=== PATIENT | male | born 1955 | race Two or more races ===

== ENCOUNTER 2023-12-08 16:35 | Inpatient (IN) | payer MEDICARE, OTHER ==
[~2023-12-08] VITALS: Ht 165.1 cm; Wt 81.6 kg
[~2023-12-08 16:35] MED LIST: TEMA7.5C12 PO
[2023-12-08 18:22] LABS: BASOPHILS % (AUTO) 0.9 % (0.0-2.0); EOSINOPHILS # (AUTO) 0.1 K/uL (0.0-0.7); EOSINOPHILS % (AUTO) 3.8 % (0.0-6.0); HEMATOCRIT 47 % (39-51); HEMOGLOBIN 15.8 g/dL (13.5-17.5); LYMPHOCYTES # (AUTO) 0.8 K/uL (0.8-4.8); LYMPHOCYTES % (AUTO) 20.3 % (20.0-44.0); MEAN CORPUSCULAR HEMOGLOBIN 31 PG (26.0-33.0); MEAN CORPUSCULAR HGB CONC 34 g/dl (31.0-36.0); MEAN CORPUSCULAR VOLUME 92 fL (80-96); MONOCYTES # (AUTO) 0.3 K/uL (0.1-1.30); MONOCYTES % (AUTO) 8.6 % (2.0-12.0); NEUTROPHILS # (AUTO) 2.6 K/uL (1.8-8.9); NEUTROPHILS % (AUTO) 66.4 % (43.0-81.0); RED BLOOD CELL COUNT(AUTO) 5.13 MIL/uL (4.5-6.0); RED CELL DISTRIBUTION WIDTH 14.6 % (11.5-15.0); WHITE BLOOD COUNT (AUTO) 3.9 K/uL (4.3-11.0)
[2023-12-08 18:32] LABS: CARBON DIOXIDE 22 mmol/L (21-32); CHLORIDE 108 mmol/L (98-107); CREATININE 0.7 mg/dL (0.6-1.3); GLUCOSE 123 mg/dL (74-106); POTASSIUM 3.7 mmol/L (3.5-5.1); SODIUM SERUM 139 mmol/L (136-145); UREA NITROGEN, BLOOD 3 mg/dL (7-18)
[2023-12-08 18:35] LABS: PLATELET COUNT (AUTO) 41 K/uL (150-450)
[2023-12-08 18:41] LABS: ALANINE AMINOTRANSFERASE 34 U/L (12-78); ALKALINE PHOSPHATASE 120 U/L (46-116); ASPARTATE AMINOTRANSFERASE 49 U/L (15-37); BILIRUBIN,DIRECT 0.6 mg/dL (0.0-0.2); CALCIUM, SERUM 8.2 mg/dL (8.5-10.1)
[2023-12-08 18:43] LABS: ACETAMINOPHEN 0 ug/ml (10-30); ALCOHOL, BLOOD < 3 mg/dL (0-10); SALICYLATE < 0.2 mg/dL (2.8-20.0)
[2023-12-08 18:49] LABS: APPEARANCE,URINE Clear (CLEAR); BILIRUBIN,URINE Negative (NEGATIVE); BLOOD, URINE Trace-intact Ery/uL (NEGATIVE); COLOR,URINE Other (YELLOW); KETONES,URINE Negative (NEGATIVE); LEUKOCYTE ESTERASE ,URINE Negative (NEGATIVE); NITRITE, URINE Negative (NEGATIVE); PROTEIN,URINE Negative (NEGATIVE); UGLUCOSE Negative (NEGATIVE); UROBILINOGEN,URINE 0.2 EU/dL (0.2)
[2023-12-08 19:09] LABS: AMPHETAMINE, URINE NEGATIVE (NEGATIVE); BARBITURATE, URINE NEGATIVE (NEGATIVE); BENZODIAZEPINE, URINE NEGATIVE (NEGATIVE); CANNABINOID, URINE NEGATIVE (NEGATIVE); COCCAINE, URINE NEGATIVE (NEGATIVE); OPIATE, URINE NEGATIVE (NEGATIVE); PHENCYCLIDINE SCREEN,URINE NEGATIVE (NEGATIVE)
[2023-12-08 19:27] LABS: ADD URINE CULTURE NO; BACTERIA,URINE Rare /HPF (None Seen); RBC,URINE 0-2 /HPF (0-2); SQUAMOUS EPITHELIAL CELL,UR Rare /HPF (None Seen); WBC,URINE 0-2 /HPF (0-3)
[2023-12-08] MEDS ORDERED: DOCU-141 PO (20:25)
[2023-12-08] MEDS ORDERED: LACT10SO3 PO (20:25)
[2023-12-08] MEDS ORDERED: GABA-532 PO (20:25)
[2023-12-08] MEDS ORDERED: CARV3.122 PO (20:25)
[2023-12-08] MEDS ORDERED: MAG355OR18 PO (20:26)
[2023-12-08] MEDS ORDERED: MELA3TAB41 PO (20:27)
[2023-12-08] MEDS ORDERED: RISP0.5T65 PO (20:29)
[2023-12-08] MEDS ORDERED: RIFA550T PO (20:29)
[2023-12-08] MEDS ORDERED: TEMA15CA PO (20:29)
[2023-12-08] MEDS ORDERED: MEMA10TA PO (20:29)
[2023-12-08 20:56] LABS: EOSINOPHILS % (MANUAL) 3 % (0-4); LYMPHOCYTES % (MANUAL) 20 % (16-48); MONOCYTES % (MANUAL) 7 % (0-11.0); NEUTROPHILS % (MANUAL) 70 (42-76); PLATELET ESTIMATE DECREASED
[2023-12-08] MEDS ORDERED: MAGNESIUM HYDROXIDE 30 ML UDC PO PRN (22:00)
[2023-12-08] MEDS ORDERED: LORAZEPAM 0.5 MG TABLET PO PRN (22:00)
[2023-12-08] MEDS ORDERED: TEMAZEPAM 7.5 MG CAPSULE PO PRN (22:00)
[2023-12-08] MEDS ORDERED: MAG HYDROX/AL HYDROX/SIMETH 30 ML UDC PO PRN (22:00)
[2023-12-08] MEDS ORDERED: ACETAMINOPHEN 325 MG TABLET PO PRN (22:00)
[2023-12-08] MEDS: BLOOD SUGAR DIAGNOSTIC 1 EACH STRIP IN ONE (22:32)
[2023-12-08 23:25] VITALS: BP 129/75; TEMP 98; O2SAT 98
[2023-12-09 08:00] VITALS: BP 189/120; TEMP 98.6; O2SAT 95
[2023-12-09] MEDS ORDERED: MAG30ORA PO (08:44)
[2023-12-09] MEDS ORDERED: MAGN400O6 PO (08:44)
[2023-12-09] MEDS ORDERED: ERGO500093 PO (08:44)
[2023-12-09] MEDS ORDERED: NA P133E RC (08:44)
[2023-12-09] MEDS ORDERED: CRAN425C6 PO (08:44)
[2023-12-09] MEDS ORDERED: POTA-88 PO (08:44)
[2023-12-09] MEDS ORDERED: MULT-213 PO (08:44)
[2023-12-09] MEDS ORDERED: ACET325T53 PO (08:44)
[2023-12-09] MEDS ORDERED: GABA300C PO (08:44)
[2023-12-09] MEDS ORDERED: MAGN400T26 PO (08:44)
[2023-12-09] MEDS ORDERED: ACETAMINOPHEN 325 MG TABLET PO PRN (12:30)
[2023-12-09] MEDS: CARVEDILOL 3.125 MG TABLET PO SCH (12:30)
[2023-12-09] MEDS ORDERED: NA PHOS,M-B/NA PHOS,DI-BA 1 EA ENEMA RC PRN (12:30)
[2023-12-09] MEDS ORDERED: LACTULOSE 10 G/15 ML UDC (PYXIS) PO PRN (12:30)
[2023-12-09 12:50] VITALS: BP 94/67
[2023-12-09] MEDS: GABAPENTIN 300 MG CAPSULE PO SCH (13:17)
[2023-12-09] MEDS: risperiDONE 1 MG TABLET PO SCH ×2 (15:09→21:38)
[2023-12-09 16:00] VITALS: BP 102/65; TEMP 97.7; O2SAT 96
[2023-12-09] MEDS: RIFAXIMIN 550 MG TABLET PO SCH (16:39)
[2023-12-09] MEDS: MEMANTINE HCL 5 MG TABLET PO SCH (16:39)
[2023-12-09 20:00] VITALS: BP 125/73; TEMP 98.4; O2SAT 96
[2023-12-10 07:34] LABS: BASOPHILS % (AUTO) 0.7 % (0.0-2.0); EOSINOPHILS # (AUTO) 0.2 K/uL (0.0-0.7); EOSINOPHILS % (AUTO) 4.5 % (0.0-6.0); HEMATOCRIT 47 % (39-51); HEMOGLOBIN 16.1 g/dL (13.5-17.5); LYMPHOCYTES # (AUTO) 0.9 K/uL (0.8-4.8); LYMPHOCYTES % (AUTO) 23.1 % (20.0-44.0); MEAN CORPUSCULAR HEMOGLOBIN 32 PG (26.0-33.0); MEAN CORPUSCULAR HGB CONC 34 g/dl (31.0-36.0); MEAN CORPUSCULAR VOLUME 94 fL (80-96); MONOCYTES # (AUTO) 0.3 K/uL (0.1-1.30); MONOCYTES % (AUTO) 8.7 % (2.0-12.0); NEUTROPHILS # (AUTO) 2.5 K/uL (1.8-8.9); RED BLOOD CELL COUNT(AUTO) 5.06 MIL/uL (4.5-6.0); RED CELL DISTRIBUTION WIDTH 14.3 % (11.5-15.0); WHITE BLOOD COUNT (AUTO) 3.9 K/uL (4.3-11.0)
[2023-12-10 07:47] LABS: PLATELET COUNT (AUTO) 43 K/uL (150-450)
[2023-12-10 08:00] VITALS: BP 116/72; TEMP 97.7; O2SAT 98
[2023-12-10 08:21] LABS: CALCIUM, SERUM 8.5 mg/dL (8.5-10.1); CREATININE 0.7 mg/dL (0.6-1.3); POTASSIUM 3.4 mmol/L (3.5-5.1)
[2023-12-10] MEDS: DOCUSATE SODIUM 100 MG CAPSULE PO SCH (08:31)
[2023-12-10] MEDS: MULTIVITAMINS,THERAGRAN 1 UDTAB TABLET PO SCH (08:34)
[2023-12-10] MEDS ORDERED: ERGOCALCIFEROL (VITAMIN D 2) 50,000 UNIT CAPSULE PO SCH (09:00)
[2023-12-10] MEDS: CHOLECALCIFEROL 1,000 UNIT TABLET (VIT D3) PO SCH (09:29)
[2023-12-10 11:29] LABS: ANISOCYTOSIS 1+; BASOPHILS % (MANUAL) 0 % (0.0-2.0); EOSINOPHILS % (MANUAL) 4 % (0-4); LYMPHOCYTES % (MANUAL) 19 % (16-48); MONOCYTES % (MANUAL) 5 % (0-11.0); NEUTROPHILS % (MANUAL) 72 (42-76); PLATELET ESTIMATE DECREASED
[2023-12-10] MEDS: POTASSIUM CHLORIDE 20 MEQ TAB.PRT.SR PO ONE (11:57)
[2023-12-10 16:00] VITALS: BP 128/86; TEMP 97.9; O2SAT 94
[2023-12-10 20:00] VITALS: BP 124/76; TEMP 98; O2SAT 98
[2023-12-11 08:00] VITALS: BP 124/82; TEMP 98.2; O2SAT 95
[2023-12-11 15:46] LABS: BASOPHILS % (AUTO) 0.9 % (0.0-2.0); EOSINOPHILS # (AUTO) 0.2 K/uL (0.0-0.7); EOSINOPHILS % (AUTO) 4.3 % (0.0-6.0); HEMATOCRIT 48 % (39-51); HEMOGLOBIN 16.3 g/dL (13.5-17.5); LYMPHOCYTES # (AUTO) 0.9 K/uL (0.8-4.8); MEAN CORPUSCULAR HEMOGLOBIN 32 PG (26.0-33.0); MEAN CORPUSCULAR HGB CONC 34 g/dl (31.0-36.0); MEAN CORPUSCULAR VOLUME 95 fL (80-96); MONOCYTES # (AUTO) 0.3 K/uL (0.1-1.30); MONOCYTES % (AUTO) 8.4 % (2.0-12.0); NEUTROPHILS # (AUTO) 2.6 K/uL (1.8-8.9); NEUTROPHILS % (AUTO) 64.4 % (43.0-81.0); RED BLOOD CELL COUNT(AUTO) 5.03 MIL/uL (4.5-6.0); RED CELL DISTRIBUTION WIDTH 15.1 % (11.5-15.0)
[2023-12-11 15:52] LABS: PLATELET COUNT (AUTO) 43 K/uL (150-450)
[2023-12-11 16:00] VITALS: BP 104/64; TEMP 98.1; O2SAT 95
[2023-12-11 16:18] LABS: C-REACTIVE PROTEIN < 0.20 mg/dL (0.0-0.30); FERRITIN 75 ng/mL (8-388); THYROID STIMULATING HORMONE 1.479 uIU/mL (0.358-3.74)
[2023-12-11 16:26] LABS: IRON, SERUM 69 ug/dl (50-175); TOTAL IRON BINDING CAPACITY 250 ug/dl (250-450)
[2023-12-11 16:38] LABS: ALANINE AMINOTRANSFERASE 23 U/L (12-78); ALBUMIN 2.5 g/dL (3.4-5.0); ALKALINE PHOSPHATASE 111 U/L (46-116); ASPARTATE AMINOTRANSFERASE 30 U/L (15-37); BILIRUBIN,DIRECT 0.7 mg/dL (0.0-0.2); BILIRUBIN,TOTAL 2.8 mg/dL (0.2-1.0); TOTAL PROTEIN, SERUM 6.5 g/dL (6.4-8.2)
[2023-12-11 18:02] LABS: RHEUMATOID FACTOR SCREEN NEGATIVE (NEGATIVE)
[2023-12-11 18:23] LABS: ANISOCYTOSIS 1+; EOSINOPHILS % (MANUAL) 5 % (0-4); LYMPHOCYTES % (MANUAL) 17 % (16-48); MONOCYTES % (MANUAL) 6 % (0-11.0); NEUTROPHILS % (MANUAL) 72 (42-76); PLATELET ESTIMATE DECREASED
[2023-12-11 18:24] LABS: ROULEAUX 1+
[2023-12-11 20:18] VITALS: BP 110/70; TEMP 98; O2SAT 95
[2023-12-12 07:17] LABS: BASOPHILS % (AUTO) 0.7 % (0.0-2.0); EOSINOPHILS # (AUTO) 0.2 K/uL (0.0-0.7); EOSINOPHILS % (AUTO) 4.7 % (0.0-6.0); HEMATOCRIT 47 % (39-51); HEMOGLOBIN 15.9 g/dL (13.5-17.5); LYMPHOCYTES # (AUTO) 1.1 K/uL (0.8-4.8); LYMPHOCYTES % (AUTO) 23.4 % (20.0-44.0); MEAN CORPUSCULAR HEMOGLOBIN 32 PG (26.0-33.0); MEAN CORPUSCULAR HGB CONC 34 g/dl (31.0-36.0); MEAN CORPUSCULAR VOLUME 94 fL (80-96); MONOCYTES # (AUTO) 0.4 K/uL (0.1-1.30); MONOCYTES % (AUTO) 9.4 % (2.0-12.0); NEUTROPHILS # (AUTO) 2.8 K/uL (1.8-8.9); NEUTROPHILS % (AUTO) 61.8 % (43.0-81.0); RED CELL DISTRIBUTION WIDTH 14.5 % (11.5-15.0); WHITE BLOOD COUNT (AUTO) 4.5 K/uL (4.3-11.0)
[2023-12-12 07:24] LABS: PLATELET COUNT (AUTO) 43 K/uL (150-450)
[2023-12-12 07:38] LABS: ALBUMIN 2.5 g/dL (3.4-5.0); BILIRUBIN,DIRECT 0.8 mg/dL (0.0-0.2); BILIRUBIN,TOTAL 2.8 mg/dL (0.2-1.0); CALCIUM, SERUM 8.6 mg/dL (8.5-10.1); CREATININE 0.8 mg/dL (0.6-1.3); POTASSIUM 3.7 mmol/L (3.5-5.1); TOTAL PROTEIN, SERUM 6.4 g/dL (6.4-8.2)
[2023-12-12 08:00] VITALS: BP 136/87; TEMP 98.6; O2SAT 97
[2023-12-12 10:09] LABS: *ANA ANTI-CENTROMERE B AB <0.2 AI (0.0-0.9); *ANA ANTI-DNA(DS) AB, QN <1 IU/mL (0-9); *ANA ANTI-JO-1 <0.2 AI (0.0-0.9); *ANA ANTICHROMATIN ANTIBODY <0.2 AI (0.0-0.9); *ANA RNP ANTIBODIES 0.2 AI (0.0-0.9); *ANA SJOGREN'S ANTI-SS-A <0.2 AI (0.0-0.9); *ANA SJOGREN'S ANTI-SS-B <0.2 AI (0.0-0.9); *ANAANTI-SCLERODERMA-70 AB <0.2 AI (0.0-0.9); *ANASMITH AB <0.2 AI (0.0-0.9)
[2023-12-12 10:55] LABS: BASOPHILS % (MANUAL) 0 % (0.0-2.0); EOSINOPHILS % (MANUAL) 3 % (0-4); LYMPHOCYTES % (MANUAL) 18 % (16-48); MONOCYTES % (MANUAL) 7 % (0-11.0); NEUTROPHILS % (MANUAL) 72 (42-76); PLATELET ESTIMATE DECREASED
[2023-12-12] MEDS: risperiDONE 0.25 MG TABLET PO SCH (13:43)
[2023-12-12 16:00] VITALS: BP 120/80; TEMP 97.9; O2SAT 97
[2023-12-12 20:50] VITALS: BP 102/58; TEMP 97.9; O2SAT 96
[2023-12-13 07:07] LABS: HEPATITIS B SURFACE AB Non Reactive (.); IMMUNOGLOBULIN A, SERUM 660 mg/dL (61-437); IMMUNOGLOBULIN G, SERUM 1333 mg/dL (603-1613); IMMUNOGLOBULIN M, SERUM 396 mg/dL (20-172)
[2023-12-13 08:00] VITALS: BP 132/90; TEMP 97.9; O2SAT 97
[2023-12-13 08:10] LABS: *SPE A/G RATIO 0.7 (0.7-1.7); *SPE ALBUMIN 2.6 g/dL (2.9-4.4); *SPE ALPHA-1-GLOBULIN 0.3 g/dL (0.0-0.4); *SPE ALPHA-2-GLOBULIN 0.6 g/dL (0.4-1.0); *SPE BETA GLOBULIN 1.1 g/dL (0.7-1.3); *SPE GLOBULIN, TOTAL 3.6 g/dL (2.2-3.9); *SPE M-SPIKE 0.6 g/dL (Not Observed); *SPE PROTEIN TOTAL 6.2 g/dL (6.0-8.5); *SPEGAMMA GLOBULIN 1.7 g/dL (0.4-1.8)
[2023-12-13 13:09] LABS: FREE KAPPA LT CHAINS SERUM 88.2 mg/L (3.3-19.4); FREE LAMBDA LT CHAIN SERUM 30.2 mg/L (5.7-26.3); KAPPA/LAMBDA RATIO SERUM 2.92 (0.26-1.65)
[2023-12-13 15:07] LABS: FOLIC ACID > 20.0 ng/mL (>3.0)
[2023-12-13 16:00] VITALS: BP 150/90; TEMP 98.7; O2SAT 99
[2023-12-13 20:44] VITALS: BP 120/68; TEMP 98.2; O2SAT 96
[2023-12-13] MEDS: risperiDONE 1 MG TABLET PO SCH (21:06)
[2023-12-14 07:41] LABS: BASOPHILS % (AUTO) 0.7 % (0.0-2.0); EOSINOPHILS # (AUTO) 0.2 K/uL (0.0-0.7); EOSINOPHILS % (AUTO) 4.3 % (0.0-6.0); HEMATOCRIT 46 % (39-51); LYMPHOCYTES % (AUTO) 23.2 % (20.0-44.0); MEAN CORPUSCULAR HEMOGLOBIN 32 PG (26.0-33.0); MEAN CORPUSCULAR HGB CONC 35 g/dl (31.0-36.0); MEAN CORPUSCULAR VOLUME 94 fL (80-96); MONOCYTES # (AUTO) 0.4 K/uL (0.1-1.30); MONOCYTES % (AUTO) 9.7 % (2.0-12.0); NEUTROPHILS # (AUTO) 2.7 K/uL (1.8-8.9); NEUTROPHILS % (AUTO) 62.1 % (43.0-81.0); RED BLOOD CELL COUNT(AUTO) 4.94 MIL/uL (4.5-6.0); RED CELL DISTRIBUTION WIDTH 14.4 % (11.5-15.0); WHITE BLOOD COUNT (AUTO) 4.3 K/uL (4.3-11.0)
[2023-12-14 07:59] LABS: ALBUMIN 2.6 g/dL (3.4-5.0); BILIRUBIN,DIRECT 0.8 mg/dL (0.0-0.2); BILIRUBIN,TOTAL 2.7 mg/dL (0.2-1.0); TOTAL PROTEIN, SERUM 6.5 g/dL (6.4-8.2)
[2023-12-14 08:00] VITALS: BP 143/82; TEMP 97.9; O2SAT 97
[2023-12-14 08:29] LABS: PLATELET COUNT (AUTO) 40 K/uL (150-450)
[2023-12-14 08:36] LABS: INR 1.41 (0.91-1.10); PARTIAL THROMBOPLASTIN TIME 29.9 SEC (24.3-34.3); PROTHROMBIN TIME 14.6 SECS (9.2-11.1)
[2023-12-14 09:50] LABS: BASOPHILS % (MANUAL) 0 % (0.0-2.0); EOSINOPHILS % (MANUAL) 3 % (0-4); LYMPHOCYTES % (MANUAL) 21 % (16-48); MONOCYTES % (MANUAL) 6 % (0-11.0); NEUTROPHILS % (MANUAL) 70 (42-76); PLATELET ESTIMATE DECREASED
[2023-12-14] MEDS ORDERED: LIDOCAINE 1% INJ 50 ML MDV IJ ONE (15:30)
[2023-12-14 16:00] VITALS: BP 126/65; TEMP 98.7; O2SAT 97
[2023-12-14] MEDS: risperiDONE 1 MG TABLET PO SCH (17:02)
[2023-12-14 20:17] VITALS: BP 119/74; TEMP 98.1; O2SAT 97
[2023-12-15 07:41] LABS: BASOPHILS % (AUTO) 0.7 % (0.0-2.0); EOSINOPHILS # (AUTO) 0.1 K/uL (0.0-0.7); EOSINOPHILS % (AUTO) 4.2 % (0.0-6.0); HEMATOCRIT 47 % (39-51); HEMOGLOBIN 16.1 g/dL (13.5-17.5); LYMPHOCYTES # (AUTO) 0.8 K/uL (0.8-4.8); MEAN CORPUSCULAR HEMOGLOBIN 32 PG (26.0-33.0); MEAN CORPUSCULAR HGB CONC 34 g/dl (31.0-36.0); MEAN CORPUSCULAR VOLUME 94 fL (80-96); MONOCYTES # (AUTO) 0.3 K/uL (0.1-1.30); MONOCYTES % (AUTO) 8.4 % (2.0-12.0); NEUTROPHILS # (AUTO) 2.3 K/uL (1.8-8.9); NEUTROPHILS % (AUTO) 64.7 % (43.0-81.0); RED BLOOD CELL COUNT(AUTO) 5.02 MIL/uL (4.5-6.0); RED CELL DISTRIBUTION WIDTH 14.5 % (11.5-15.0); WHITE BLOOD COUNT (AUTO) 3.5 K/uL (4.3-11.0)
[2023-12-15 08:00] VITALS: BP 120/68; TEMP 98; O2SAT 100
[2023-12-15 08:05] LABS: PLATELET COUNT (AUTO) 40 K/uL (150-450)
[2023-12-15 08:31] LABS: INR 1.41 (0.91-1.10); PARTIAL THROMBOPLASTIN TIME 30.2 SEC (24.3-34.3); PROTHROMBIN TIME 14.6 SECS (9.2-11.1)
[2023-12-15 10:57] LABS: BASOPHILS % (MANUAL) 0 % (0.0-2.0); EOSINOPHILS % (MANUAL) 5 % (0-4); LYMPHOCYTES % (MANUAL) 18 % (16-48); MONOCYTES % (MANUAL) 9 % (0-11.0); NEUTROPHILS % (MANUAL) 68 (42-76); PLATELET ESTIMATE DECREASED
[2023-12-15] MEDS: PHYTONADIONE INJ 10 MG/1 ML AMPUL SQ ONE (12:51)
[2023-12-15] MEDS ORDERED: LORAZEPAM 0.5 MG TABLET PO PRN (15:30)
[2023-12-15] MEDS ORDERED: MORPHINE SULFATE INJ 2 MG/ML DISP.SYRIN IM PRN (15:30)
[2023-12-15 15:47] VITALS: BP 124/67; TEMP 97.4; O2SAT 97
[2023-12-15] MEDS ORDERED: RISP1TAB7 PO (18:53)
[2023-12-15] MEDS ORDERED: MORP2VIA IM (18:53)
[2023-12-15] MEDS ORDERED: LORA-258 PO (18:53)
[2023-12-15] MEDS ORDERED: LORA-259 PO (18:53)
[2023-12-15] MEDS ORDERED: MULT-24 PO (18:53)
[2023-12-15] MEDS ORDERED: CHOL100043 PO (18:53)
== END 2023-12-15 16:05 | DRG 885 ==
LOC: ER 16:35 → GPS 20:01
PROVIDERS: ADMIT Nurse Practitioner Psychiatric/Mental Health; ATTEND Nurse Practitioner Acute Care
DX: F29 Unspecified psychosis not due to a substance or known physiological condition (principal); G93.41 Metabolic encephalopathy; D61.818 Other pancytopenia; E44.0 Moderate protein-calorie malnutrition; F03.90 Unspecified dementia, unspecified severity, without behavioral disturbance, psychotic disturbance, mood disturbance, and anxiety; I10 Essential (primary) hypertension; F10.21 Alcohol dependence, in remission; K21.9 Gastro-esophageal reflux disease without esophagitis; F25.9 Schizoaffective disorder, unspecified; E88.09 Other disorders of plasma-protein metabolism, not elsewhere classified; K70.30 Alcoholic cirrhosis of liver without ascites; D72.819 Decreased white blood cell count, unspecified; D69.59 Other secondary thrombocytopenia; E80.6 Other disorders of bilirubin metabolism; Z20.822 Contact with and (suspected) exposure to COVID-19; R16.1 Splenomegaly, not elsewhere classified; Z73.6 Limitation of activities due to disability; E87.6 Hypokalemia; K80.20 Calculus of gallbladder without cholecystitis without obstruction; Z87.891 Personal history of nicotine dependence; Z68.30 Body mass index [BMI] 30.0-30.9, adult; E66.9 Obesity, unspecified
CPT/HCPCS: 36415; 71045-TC; 74181-TC; 76700-TC; 80048-TC; 80061-TC; 80076-TC; 81001; 82140-TC; 82247-TC; 82248-TC; 82607-TC; 82728-TC; 82784; 83540-TC; 84155; 84165; 84443-TC; 85025-TC; 85610-TC; 85730-TC; 86140-TC; 86225; 86235; 86334; 86431-TC; 86706; 86803; 87081-TC; 87340; 97112-TC; 97116-TC; 97530-TC; G0480; J3430; J3490

== ENCOUNTER 2023-12-15 16:04 | Inpatient (IN) | payer MEDICARE, OTHER ==
[~2023-12-15] VITALS: Ht 167.6 cm; Wt 91.6 kg
[~2023-12-15 16:04] MED LIST changes: +ACET325T53 PO; +CARV3.122 PO; +CRAN425C6 PO; +DOCU-141 PO; +ERGO500093 PO; +GABA300C PO; +LACT10SO3 PO; +MAG30ORA PO; +MAGN400O6 PO; +MAGN400T26 PO; +MELA3TAB41 PO; +MEMA10TA PO; +MULT-213 PO; +NA P133E RC; +POTA-88 PO; +RIFA550T PO; +RISP0.5T65 PO
[2023-12-15 17:00] VITALS: BP 147/82; TEMP 98.8; O2SAT 97
[2023-12-15] MEDS ORDERED: ACETAMINOPHEN 325 MG TABLET PO PRN (17:00)
[2023-12-15] MEDS ORDERED: Z GUARD REMEDY 4 OZ OINT TP PRN (17:00)
[2023-12-15] MEDS ORDERED: MAGNESIUM HYDROXIDE 30 ML UDC PO PRN (17:00)
[2023-12-15] MEDS ORDERED: ONDANSETRON HCL/PF 4 MG/2 ML VIAL IVP PRN (17:00)
[2023-12-15] MEDS ORDERED: CHOL100043 PO (18:53)
[2023-12-15] MEDS ORDERED: MULT-24 PO (18:53)
[2023-12-15] MEDS ORDERED: RISP1TAB7 PO (18:53)
[2023-12-15] MEDS ORDERED: MORP2VIA IM (18:53)
[2023-12-15] MEDS ORDERED: LORA-258 PO (18:53)
[2023-12-15] MEDS ORDERED: LORA-259 PO (18:53)
[2023-12-15 20:00] VITALS: BP_SYST 164; BP_SYST 176; BP_DIAS 80; BP_DIAS 86; TEMP 97.7; O2SAT 97
[2023-12-15 23:08] VITALS: BP 157/93; TEMP 97.5
[2023-12-15 23:25] VITALS: BP 180/83; TEMP 97.4
[2023-12-16] VITALS (8 sets, daily range): BP systolic 128–153; BP diastolic 69–94; TEMP 97.6–98.8; O2SAT 90–98
[2023-12-16] MEDS: LORAZEPAM INJ 2 MG/ML VIAL IV PRN (03:53)
[2023-12-16 06:56] LABS: BASOPHILS % (AUTO) 0.4 % (0.0-2.0); EOSINOPHILS # (AUTO) 0.1 K/uL (0.0-0.7); EOSINOPHILS % (AUTO) 3.5 % (0.0-6.0); HEMATOCRIT 48 % (39-51); HEMOGLOBIN 16.7 g/dL (13.5-17.5); LYMPHOCYTES # (AUTO) 0.7 K/uL (0.8-4.8); LYMPHOCYTES % (AUTO) 17.9 % (20.0-44.0); MEAN CORPUSCULAR HEMOGLOBIN 32 PG (26.0-33.0); MEAN CORPUSCULAR HGB CONC 34 g/dl (31.0-36.0); MEAN CORPUSCULAR VOLUME 94 fL (80-96); MONOCYTES # (AUTO) 0.3 K/uL (0.1-1.30); MONOCYTES % (AUTO) 8.2 % (2.0-12.0); NEUTROPHILS # (AUTO) 2.6 K/uL (1.8-8.9); RED BLOOD CELL COUNT(AUTO) 5.17 MIL/uL (4.5-6.0); RED CELL DISTRIBUTION WIDTH 14.3 % (11.5-15.0); WHITE BLOOD COUNT (AUTO) 3.7 K/uL (4.3-11.0)
[2023-12-16 07:06] LABS: PLATELET COUNT (AUTO) 40 K/uL (150-450)
[2023-12-16 07:12] LABS: ALBUMIN 2.9 g/dL (3.4-5.0); BILIRUBIN,DIRECT 0.7 mg/dL (0.0-0.2); BILIRUBIN,TOTAL 2.8 mg/dL (0.2-1.0); CALCIUM, SERUM 8.2 mg/dL (8.5-10.1); CREATININE 0.7 mg/dL (0.6-1.3); MAGNESIUM 1.9 mg/dL (1.8-2.4); PHOSPHORUS 2.8 mg/dL (2.5-4.9); POTASSIUM 3.7 mmol/L (3.5-5.1); TOTAL PROTEIN, SERUM 7.1 g/dL (6.4-8.2)
[2023-12-16] MEDS: PANTOPRAZOLE 40 MG TABLET.DR PO SCH (07:41)
[2023-12-16 08:30] LABS: ANISOCYTOSIS 1+; BASOPHILS % (MANUAL) 0 % (0.0-2.0); EOSINOPHILS % (MANUAL) 4 % (0-4); LYMPHOCYTES % (MANUAL) 18 % (16-48); MONOCYTES % (MANUAL) 10 % (0-11.0); NEUTROPHILS % (MANUAL) 68 (42-76); PLATELET ESTIMATE DECREASED
[2023-12-16] MEDS ORDERED: NA PHOS,M-B/NA PHOS,DI-BA 1 EA ENEMA RC PRN (11:30)
[2023-12-16] MEDS ORDERED: LORAZEPAM 0.5 MG TABLET PO PRN (11:30)
[2023-12-16] MEDS ORDERED: TEMAZEPAM 7.5 MG CAPSULE PO PRN (11:30)
[2023-12-16] MEDS ORDERED: LACTULOSE 10 G/15 ML UDC (PYXIS) PO PRN (13:00)
[2023-12-16] MEDS: GABAPENTIN 300 MG CAPSULE PO SCH (14:16)
[2023-12-16] MEDS: LORAZEPAM 0.5 MG TABLET PO SCH (14:16)
[2023-12-16] MEDS ORDERED: ACETAMINOPHEN 325 MG TABLET PO ONE (16:30)
[2023-12-16] MEDS ORDERED: LIDOCAINE 1% INJ 50 ML MDV IJ ONE (16:30)
[2023-12-16] MEDS ORDERED: diphenhydrAMINE HCL 50 MG/ML VIAL IV ONE (16:30)
[2023-12-16] MEDS: RIFAXIMIN 550 MG TABLET PO SCH (17:03)
[2023-12-16] MEDS: MEMANTINE HCL 5 MG TABLET PO SCH (17:03)
[2023-12-16] MEDS: risperiDONE 1 MG TABLET PO SCH ×2 (17:03→21:42)
[2023-12-16] MEDS: CARVEDILOL 3.125 MG TABLET PO SCH (17:04)
[2023-12-17 06:14] LABS: BASOPHILS % (AUTO) 0.6 % (0.0-2.0); EOSINOPHILS # (AUTO) 0.2 K/uL (0.0-0.7); EOSINOPHILS % (AUTO) 3.9 % (0.0-6.0); HEMATOCRIT 48 % (39-51); HEMOGLOBIN 16.5 g/dL (13.5-17.5); LYMPHOCYTES # (AUTO) 0.9 K/uL (0.8-4.8); MEAN CORPUSCULAR HEMOGLOBIN 33 PG (26.0-33.0); MEAN CORPUSCULAR HGB CONC 35 g/dl (31.0-36.0); MEAN CORPUSCULAR VOLUME 94 fL (80-96); MONOCYTES # (AUTO) 0.5 K/uL (0.1-1.30); NEUTROPHILS # (AUTO) 3.5 K/uL (1.8-8.9); NEUTROPHILS % (AUTO) 68.5 % (43.0-81.0); PLATELET COUNT (AUTO) 51 K/uL (150-450); RED BLOOD CELL COUNT(AUTO) 5.04 MIL/uL (4.5-6.0); RED CELL DISTRIBUTION WIDTH 14.6 % (11.5-15.0); WHITE BLOOD COUNT (AUTO) 5.1 K/uL (4.3-11.0)
[2023-12-17 06:20] LABS: ALBUMIN 2.6 g/dL (3.4-5.0); BILIRUBIN,TOTAL 2.7 mg/dL (0.2-1.0); CALCIUM, SERUM 8.1 mg/dL (8.5-10.1); CREATININE 0.8 mg/dL (0.6-1.3); POTASSIUM 3.9 mmol/L (3.5-5.1); TOTAL PROTEIN, SERUM 6.7 g/dL (6.4-8.2)
[2023-12-17 06:53] LABS: INR 1.39 (0.91-1.10); PARTIAL THROMBOPLASTIN TIME 28.9 SEC (24.3-34.3); PROTHROMBIN TIME 14.4 SECS (9.2-11.1)
[2023-12-17 07:56] LABS: LYMPHOCYTES % (MANUAL) 19 % (16-48); NEUTROPHILS % (MANUAL) 70 (42-76)
[2023-12-17 07:57] LABS: EOSINOPHILS % (MANUAL) 3 % (0-4); MONOCYTES % (MANUAL) 8 % (0-11.0)
[2023-12-17 07:58] LABS: PLATELET ESTIMATE DECREASED
[2023-12-17 08:00] VITALS: BP 161/87; TEMP 98.4; O2SAT 95
[2023-12-17] MEDS: MULTIVITAMINS,THERAGRAN 1 UDTAB TABLET PO SCH (08:28)
[2023-12-17] MEDS: CHOLECALCIFEROL 1,000 UNIT TABLET (VIT D3) PO SCH (08:28)
[2023-12-17] MEDS: DOCUSATE SODIUM 100 MG CAPSULE PO SCH (08:28)
[2023-12-17] MEDS: LACTULOSE 10 G/15 ML UDC (PYXIS) PO SCH (09:35)
[2023-12-17] MEDS: MORPHINE SULFATE INJ 2 MG/ML DISP.SYRIN IV ONE (15:11)
[2023-12-17] MEDS: LORAZEPAM 1 MG TABLET PO ONE (15:11)
[2023-12-17 16:00] VITALS: BP 131/81; TEMP 98.8; O2SAT 93
[2023-12-17] MEDS ORDERED: MORPHINE SULFATE INJ 2 MG/ML DISP.SYRIN IM PRN (16:30)
[2023-12-17 20:00] VITALS: BP 123/85; TEMP 97.7; O2SAT 97
[2023-12-18 05:05] VITALS: O2SAT 97
[2023-12-18 07:41] LABS: BASOPHILS % (AUTO) 0.6 % (0.0-2.0); EOSINOPHILS # (AUTO) 0.2 K/uL (0.0-0.7); EOSINOPHILS % (AUTO) 2.4 % (0.0-6.0); HEMATOCRIT 51 % (39-51); HEMOGLOBIN 17.5 g/dL (13.5-17.5); LYMPHOCYTES # (AUTO) 1.1 K/uL (0.8-4.8); MEAN CORPUSCULAR HEMOGLOBIN 32 PG (26.0-33.0); MEAN CORPUSCULAR HGB CONC 34 g/dl (31.0-36.0); MEAN CORPUSCULAR VOLUME 95 fL (80-96); MONOCYTES # (AUTO) 0.7 K/uL (0.1-1.30); MONOCYTES % (AUTO) 8.7 % (2.0-12.0); NEUTROPHILS # (AUTO) 5.6 K/uL (1.8-8.9); NEUTROPHILS % (AUTO) 74.3 % (43.0-81.0); PLATELET COUNT (AUTO) 53 K/uL (150-450); RED BLOOD CELL COUNT(AUTO) 5.41 MIL/uL (4.5-6.0); RED CELL DISTRIBUTION WIDTH 14.5 % (11.5-15.0); WHITE BLOOD COUNT (AUTO) 7.6 K/uL (4.3-11.0)
[2023-12-18 08:14] LABS: CALCIUM, SERUM 8.4 mg/dL (8.5-10.1); CREATININE 0.8 mg/dL (0.6-1.3); PHOSPHORUS 4.3 mg/dL (2.5-4.9); POTASSIUM 3.4 mmol/L (3.5-5.1)
[2023-12-18 08:25] LABS: INR 1.46 (0.91-1.10); PARTIAL THROMBOPLASTIN TIME 30.4 SEC (24.3-34.3); PROTHROMBIN TIME 15.1 SECS (9.2-11.1)
[2023-12-18 08:38] VITALS: BP 142/80; TEMP 98.4; O2SAT 96
[2023-12-18] MEDS: ZINC SULFATE 220 MG CAPSULE PO SCH (08:41)
[2023-12-18] MEDS: POTASSIUM CHLORIDE 20 MEQ TAB.PRT.SR PO SCH (11:04)
[2023-12-18 12:18] LABS: EOSINOPHILS % (MANUAL) 2 % (0-4); LYMPHOCYTES % (MANUAL) 16 % (16-48); MONOCYTES % (MANUAL) 10 % (0-11.0); NEUTROPHILS % (MANUAL) 72 (42-76)
[2023-12-18 12:19] LABS: PLATELET ESTIMATE DECREASED
[2023-12-18 12:21] LABS: ANISOCYTOSIS 1+
[2023-12-18 15:51] VITALS: BP_SYST 114; BP_SYST 164; BP_DIAS 40; BP_DIAS 86; TEMP 97.7; TEMP 99; O2SAT 95; O2SAT 99
[2023-12-18 16:55] VITALS: BP 137/84
[2023-12-18 17:58] VITALS: O2SAT 97
[2023-12-18 20:00] VITALS: BP 133/67; TEMP 98.2; O2SAT 96
[2023-12-19] VITALS (7 sets, daily range): BP systolic 95–145; BP diastolic 55–80; TEMP 97.2–98.4; O2SAT 97–99
[2023-12-19 07:01] LABS: INR 1.5 (0.91-1.10); PARTIAL THROMBOPLASTIN TIME 29.9 SEC (24.3-34.3); PROTHROMBIN TIME 15.5 SECS (9.2-11.1)
[2023-12-19 07:15] LABS: ALBUMIN 2.6 g/dL (3.4-5.0); BILIRUBIN,DIRECT 0.7 mg/dL (0.0-0.2); BILIRUBIN,TOTAL 3.7 mg/dL (0.2-1.0); CALCIUM, SERUM 8.1 mg/dL (8.5-10.1); CREATININE 0.7 mg/dL (0.6-1.3); PHOSPHORUS 3.6 mg/dL (2.5-4.9); POTASSIUM 3.6 mmol/L (3.5-5.1); TOTAL PROTEIN, SERUM 6.6 g/dL (6.4-8.2)
[2023-12-19 07:23] LABS: BASOPHILS % (AUTO) 0.7 % (0.0-2.0); EOSINOPHILS # (AUTO) 0.4 K/uL (0.0-0.7); EOSINOPHILS % (AUTO) 6.5 % (0.0-6.0); HEMATOCRIT 47 % (39-51); LYMPHOCYTES % (AUTO) 17.7 % (20.0-44.0); MEAN CORPUSCULAR HEMOGLOBIN 32 PG (26.0-33.0); MEAN CORPUSCULAR HGB CONC 34 g/dl (31.0-36.0); MEAN CORPUSCULAR VOLUME 95 fL (80-96); MONOCYTES # (AUTO) 0.5 K/uL (0.1-1.30); MONOCYTES % (AUTO) 9.9 % (2.0-12.0); NEUTROPHILS # (AUTO) 3.5 K/uL (1.8-8.9); NEUTROPHILS % (AUTO) 65.2 % (43.0-81.0); RED BLOOD CELL COUNT(AUTO) 5.01 MIL/uL (4.5-6.0); RED CELL DISTRIBUTION WIDTH 14.2 % (11.5-15.0); WHITE BLOOD COUNT (AUTO) 5.4 K/uL (4.3-11.0)
[2023-12-19 07:50] LABS: PLATELET COUNT (AUTO) 46 K/uL (150-450)
[2023-12-19 11:47] LABS: ANISOCYTOSIS 1+; BAND % (MANUAL) 2 % (0.0-5.0); BASOPHILS % (MANUAL) 0 % (0.0-2.0); EOSINOPHILS % (MANUAL) 5 % (0-4); LYMPHOCYTES % (MANUAL) 18 % (16-48); MONOCYTES % (MANUAL) 6 % (0-11.0); NEUTROPHILS % (MANUAL) 69 (42-76); PLATELET ESTIMATE DECREASED
[2023-12-19] MEDS ORDERED: diphenhydrAMINE HCL 50 MG/ML VIAL IV ONE (13:00)
[2023-12-19] MEDS: MORPHINE SULFATE INJ 2 MG/ML DISP.SYRIN IV PRN (18:34)
[2023-12-19] MEDS: LORAZEPAM 1 MG TABLET PO ONE (18:42)
[2023-12-19 20:04] LABS: BASOPHILS # (AUTO) 0.1 K/uL (0.0-0.2); BASOPHILS % (AUTO) 0.9 % (0.0-2.0); EOSINOPHILS # (AUTO) 0.4 K/uL (0.0-0.7); EOSINOPHILS % (AUTO) 5.8 % (0.0-6.0); HEMATOCRIT 44 % (39-51); LYMPHOCYTES # (AUTO) 1.2 K/uL (0.8-4.8); LYMPHOCYTES % (AUTO) 16.9 % (20.0-44.0); MEAN CORPUSCULAR HEMOGLOBIN 32 PG (26.0-33.0); MEAN CORPUSCULAR HGB CONC 34 g/dl (31.0-36.0); MEAN CORPUSCULAR VOLUME 94 fL (80-96); MONOCYTES # (AUTO) 0.6 K/uL (0.1-1.30); MONOCYTES % (AUTO) 9.1 % (2.0-12.0); NEUTROPHILS # (AUTO) 4.8 K/uL (1.8-8.9); NEUTROPHILS % (AUTO) 67.3 % (43.0-81.0); RED BLOOD CELL COUNT(AUTO) 4.62 MIL/uL (4.5-6.0); RED CELL DISTRIBUTION WIDTH 14.3 % (11.5-15.0); WHITE BLOOD COUNT (AUTO) 7.1 K/uL (4.3-11.0)
[2023-12-19 20:14] LABS: PLATELET COUNT (AUTO) 48 K/uL (150-450)
[2023-12-19 21:18] LABS: ANISOCYTOSIS 1+; EOSINOPHILS % (MANUAL) 5 % (0-4); LYMPHOCYTES % (MANUAL) 22 % (16-48); MONOCYTES % (MANUAL) 9 % (0-11.0); NEUTROPHILS % (MANUAL) 64 (42-76); PLATELET ESTIMATE DECREASED
[2023-12-19 21:19] LABS: OVALOCYTES 1+
[2023-12-20] VITALS (17 sets, daily range): BP systolic 120–149; BP diastolic 62–82; TEMP 97.7–98.8; O2SAT 97–99
[2023-12-20 07:42] LABS: BASOPHILS % (AUTO) 0.5 % (0.0-2.0); EOSINOPHILS # (AUTO) 0.3 K/uL (0.0-0.7); EOSINOPHILS % (AUTO) 5.4 % (0.0-6.0); HEMATOCRIT 45 % (39-51); HEMOGLOBIN 15.2 g/dL (13.5-17.5); LYMPHOCYTES # (AUTO) 1.2 K/uL (0.8-4.8); LYMPHOCYTES % (AUTO) 18.2 % (20.0-44.0); MEAN CORPUSCULAR HEMOGLOBIN 32 PG (26.0-33.0); MEAN CORPUSCULAR HGB CONC 34 g/dl (31.0-36.0); MEAN CORPUSCULAR VOLUME 96 fL (80-96); MONOCYTES # (AUTO) 0.6 K/uL (0.1-1.30); MONOCYTES % (AUTO) 9.3 % (2.0-12.0); NEUTROPHILS # (AUTO) 4.2 K/uL (1.8-8.9); NEUTROPHILS % (AUTO) 66.6 % (43.0-81.0); RED BLOOD CELL COUNT(AUTO) 4.69 MIL/uL (4.5-6.0); RED CELL DISTRIBUTION WIDTH 14.2 % (11.5-15.0); WHITE BLOOD COUNT (AUTO) 6.3 K/uL (4.3-11.0)
[2023-12-20 07:56] LABS: PLATELET COUNT (AUTO) 50 K/uL (150-450)
[2023-12-20 08:11] LABS: CALCIUM, SERUM 8.2 mg/dL (8.5-10.1); CREATININE 0.5 mg/dL (0.6-1.3); PHOSPHORUS 4.1 mg/dL (2.5-4.9); POTASSIUM 4.2 mmol/L (3.5-5.1)
[2023-12-20] MEDS: ACETAMINOPHEN 325 MG TABLET PO ONE (12:03)
[2023-12-20] MEDS: diphenhydrAMINE HCL 50 MG/ML VIAL IV ONE (12:07)
[2023-12-20 14:28] LABS: ANISOCYTOSIS 1+; EOSINOPHILS % (MANUAL) 3 % (0-4); LYMPHOCYTES % (MANUAL) 16 % (16-48); MONOCYTES % (MANUAL) 6 % (0-11.0); NEUTROPHILS % (MANUAL) 75 (42-76); PLATELET ESTIMATE DECREASED
[2023-12-21 07:00] LABS: BASOPHILS % (AUTO) 0.6 % (0.0-2.0); EOSINOPHILS # (AUTO) 0.2 K/uL (0.0-0.7); EOSINOPHILS % (AUTO) 5.3 % (0.0-6.0); HEMATOCRIT 42 % (39-51); HEMOGLOBIN 14.3 g/dL (13.5-17.5); LYMPHOCYTES # (AUTO) 0.8 K/uL (0.8-4.8); LYMPHOCYTES % (AUTO) 20.5 % (20.0-44.0); MEAN CORPUSCULAR HEMOGLOBIN 32 PG (26.0-33.0); MEAN CORPUSCULAR HGB CONC 34 g/dl (31.0-36.0); MEAN CORPUSCULAR VOLUME 94 fL (80-96); MONOCYTES # (AUTO) 0.3 K/uL (0.1-1.30); NEUTROPHILS # (AUTO) 2.5 K/uL (1.8-8.9); NEUTROPHILS % (AUTO) 64.6 % (43.0-81.0); RED BLOOD CELL COUNT(AUTO) 4.49 MIL/uL (4.5-6.0); RED CELL DISTRIBUTION WIDTH 13.9 % (11.5-15.0); WHITE BLOOD COUNT (AUTO) 3.9 K/uL (4.3-11.0)
[2023-12-21 07:23] LABS: PLATELET COUNT (AUTO) 50 K/uL (150-450)
[2023-12-21 08:41] VITALS: BP 120/56; TEMP 98.4; O2SAT 95
[2023-12-21 09:11] VITALS: O2SAT 98
[2023-12-21] MEDS ORDERED: LACT10SO58 PO (11:10)
[2023-12-21] MEDS ORDERED: Zinc Sulfate PO (11:10)
[2023-12-21 15:14] LABS: EOSINOPHILS % (MANUAL) 5 % (0-4); LYMPHOCYTES % (MANUAL) 20 % (16-48); MONOCYTES % (MANUAL) 10 % (0-11.0); NEUTROPHILS % (MANUAL) 65 (42-76); PLATELET ESTIMATE DECREASED
== END 2023-12-21 16:10 | DRG 441 ==
LOC: MED 16:04
PROVIDERS: ADMIT Nurse Practitioner Family; ATTEND Nurse Practitioner Acute Care
PROC: 30233R1 Transfusion of Nonautologous Platelets into Peripheral Vein, Percutaneous Approach (ICD-10-PCS; 2023-12-15)
PROC: 07DR3ZX Extraction of Iliac Bone Marrow, Percutaneous Approach, Diagnostic (ICD-10-PCS; principal; 2023-12-19)
PROC: 30233K1 Transfusion of Nonautologous Frozen Plasma into Peripheral Vein, Percutaneous Approach (ICD-10-PCS; 2023-12-19)
DX: K76.82 Hepatic encephalopathy (principal); G93.41 Metabolic encephalopathy; E72.20 Disorder of urea cycle metabolism, unspecified; D61.818 Other pancytopenia; F03.92 Unspecified dementia, unspecified severity, with psychotic disturbance; F03.918 Unspecified dementia, unspecified severity, with other behavioral disturbance; E44.0 Moderate protein-calorie malnutrition; E87.0 Hyperosmolality and hypernatremia; K70.30 Alcoholic cirrhosis of liver without ascites; D69.6 Thrombocytopenia, unspecified; K21.9 Gastro-esophageal reflux disease without esophagitis; I10 Essential (primary) hypertension; Z20.822 Contact with and (suspected) exposure to COVID-19; F32.A Depression, unspecified; Z79.899 Other long term (current) drug therapy; Z87.891 Personal history of nicotine dependence; F10.91 Alcohol use, unspecified, in remission; D72.819 Decreased white blood cell count, unspecified; E80.6 Other disorders of bilirubin metabolism; R16.1 Splenomegaly, not elsewhere classified; K80.20 Calculus of gallbladder without cholecystitis without obstruction; D47.2 Monoclonal gammopathy; F29 Unspecified psychosis not due to a substance or known physiological condition
CPT/HCPCS: 36415; 71045-TC; 74018; 80048-TC; 80053-TC; 80076-TC; 82140-TC; 83735-TC; 84100-TC; 85025-TC; 85610-TC; 85730-TC; 86850-TC; 92526; 92611-TC; 94760-TC; 94799-TC; 97110-TC; 97116-TC; 97530-TC; G0378; J1200; J2060; J2270; J3490; J7050; P9017; P9034

== ENCOUNTER 2024-01-26 11:57 | Inpatient (IN) | payer MEDICARE, OTHER ==
[~2024-01-26] VITALS: Ht 162.6 cm; Wt 113.4 kg
[~2024-01-26 11:57] MED LIST changes: +CHOL100043 PO; -CRAN425C6 PO; -ERGO500093 PO; -LACT10SO3 PO; +LACT10SO58 PO; +LORA-258 PO; +LORA-259 PO; -MAGN400T26 PO; -MELA3TAB41 PO; +MORP2VIA IM; -MULT-213 PO; +MULT-24 PO; -POTA-88 PO; +RISP1TAB7 PO; +Zinc Sulfate PO
[2024-01-26 13:56] LABS: EOSINOPHILS # (AUTO) 0.1 K/uL (0.0-0.7); EOSINOPHILS % (AUTO) 4.5 % (0.0-6.0); HEMOGLOBIN 15.8 g/dL (13.5-17.5); LYMPHOCYTES # (AUTO) 0.7 K/uL (0.8-4.8); MEAN CORPUSCULAR HEMOGLOBIN 31 PG (26.0-33.0); MONOCYTES # (AUTO) 0.3 K/uL (0.1-1.30); WHITE BLOOD COUNT (AUTO) 3.1 K/uL (4.3-11.0)
[2024-01-26 14:03] LABS: BASOPHILS % (AUTO) 0.4 % (0.0-2.0); HEMATOCRIT 48 % (39-51); LYMPHOCYTES % (AUTO) 22.7 % (20.0-44.0); MEAN CORPUSCULAR HGB CONC 33 g/dl (31.0-36.0); MEAN CORPUSCULAR VOLUME 95 fL (80-96); MONOCYTES % (AUTO) 9.1 % (2.0-12.0); NEUTROPHILS % (AUTO) 63.3 % (43.0-81.0); RED BLOOD CELL COUNT(AUTO) 5.05 MIL/uL (4.5-6.0); RED CELL DISTRIBUTION WIDTH 14.9 % (11.5-15.0)
[2024-01-26 14:05] LABS: CALCIUM, SERUM 8.1 mg/dL (8.5-10.1); CARBON DIOXIDE 24 mmol/L (21-32); CHLORIDE 111 mmol/L (98-107); CREATININE 0.8 mg/dL (0.6-1.3); GLUCOSE 188 mg/dL (74-106); PLATELET COUNT (AUTO) 41 K/uL (150-450); POTASSIUM 3.7 mmol/L (3.5-5.1); SODIUM SERUM 141 mmol/L (136-145); UREA NITROGEN, BLOOD 5 mg/dL (7-18)
[2024-01-26 14:08] LABS: SERUM AMMONIA 88 umol/L (11-32)
[2024-01-26 14:10] LABS: ALANINE AMINOTRANSFERASE 36 U/L (12-78); ALBUMIN 2.8 g/dL (3.4-5.0); ALKALINE PHOSPHATASE 104 U/L (46-116); ASPARTATE AMINOTRANSFERASE 64 U/L (15-37); BILIRUBIN,DIRECT 0.4 mg/dL (0.0-0.2); BILIRUBIN,TOTAL 2.2 mg/dL (0.2-1.0); TOTAL PROTEIN, SERUM 7.1 g/dL (6.4-8.2)
[2024-01-26 14:45] LABS: LACTIC ACID 2.6 mmol/L (0.4-2.0)
[2024-01-26] MEDS ORDERED: BISA10SU11 RC (14:52)
[2024-01-26] MEDS ORDERED: LACT20SO4 PO (14:52)
[2024-01-26] MEDS ORDERED: MAGN400T26 PO (14:52)
[2024-01-26] MEDS ORDERED: MULT-213 PO (14:52)
[2024-01-26] MEDS ORDERED: CRAN425C6 PO (14:52)
[2024-01-26] MEDS ORDERED: AMIN30LI66 PO (14:52)
[2024-01-26] MEDS ORDERED: ZINC220C6 PO (14:52)
[2024-01-26] MEDS: LACTULOSE 10 G/15 ML UDC (PYXIS) GT ONE (14:56)
[2024-01-26 15:05] LABS: EOSINOPHILS % (MANUAL) 6 % (0-4); LYMPHOCYTES % (MANUAL) 23 % (16-48); MONOCYTES % (MANUAL) 8 % (0-11.0); NEUTROPHILS % (MANUAL) 63 (42-76)
[2024-01-26 15:06] LABS: PLATELET ESTIMATE DECREASED
[2024-01-26 15:28] LABS: APPEARANCE,URINE Clear (CLEAR); BILIRUBIN,URINE SMALL (NEGATIVE); BLOOD, URINE Negative Ery/uL (NEGATIVE); COLOR,URINE YELLOW (YELLOW); KETONES,URINE Trace mg/dL (NEGATIVE); LEUKOCYTE ESTERASE ,URINE Negative (NEGATIVE); NITRITE, URINE Negative (NEGATIVE); PH,URINE 5.5 (5.0-8.0); PROTEIN,URINE Negative (NEGATIVE); UGLUCOSE 500 MG/DL mg/dL (NEGATIVE)
[2024-01-26 15:40] LABS: INR 1.32 (0.91-1.10); PARTIAL THROMBOPLASTIN TIME 25.9 SEC (24.3-34.3); PROTHROMBIN TIME 13.4 SECS (9.2-11.1)
[2024-01-26 16:35] LABS: ADD URINE CULTURE YES; BACTERIA,URINE Moderate /HPF (None Seen); RBC,URINE 0-2 /HPF (0-2); SQUAMOUS EPITHELIAL CELL,UR Rare /HPF (None Seen)
[2024-01-26 17:12] LABS: THYROID STIMULATING HORMONE 1.547 uIU/mL (0.358-3.74)
[2024-01-26] MEDS ORDERED: ONDANSETRON HCL/PF 4 MG/2 ML VIAL IVP PRN (18:30)
[2024-01-26] MEDS ORDERED: Z GUARD REMEDY 4 OZ OINT TP PRN (18:30)
[2024-01-26] MEDS: risperiDONE 0.25 MG TABLET PO SCH (21:20)
[2024-01-27] VITALS: BP 148/89; TEMP 98.6; O2SAT 96
[2024-01-27 04:00] VITALS: BP 132/81; TEMP 98.4; O2SAT 97
[2024-01-27 07:44] LABS: BASOPHILS % (AUTO) 0.7 % (0.0-2.0); EOSINOPHILS # (AUTO) 0.2 K/uL (0.0-0.7); EOSINOPHILS % (AUTO) 6.3 % (0.0-6.0); HEMATOCRIT 41 % (39-51); HEMOGLOBIN 14.1 g/dL (13.5-17.5); LYMPHOCYTES # (AUTO) 0.6 K/uL (0.8-4.8); LYMPHOCYTES % (AUTO) 23.5 % (20.0-44.0); MEAN CORPUSCULAR HEMOGLOBIN 33 PG (26.0-33.0); MEAN CORPUSCULAR HGB CONC 35 g/dl (31.0-36.0); MEAN CORPUSCULAR VOLUME 94 fL (80-96); MONOCYTES # (AUTO) 0.2 K/uL (0.1-1.30); MONOCYTES % (AUTO) 9.5 % (2.0-12.0); NEUTROPHILS # (AUTO) 1.6 K/uL (1.8-8.9); RED BLOOD CELL COUNT(AUTO) 4.33 MIL/uL (4.5-6.0); RED CELL DISTRIBUTION WIDTH 15.1 % (11.5-15.0); WHITE BLOOD COUNT (AUTO) 2.6 K/uL (4.3-11.0)
[2024-01-27 07:54] LABS: PLATELET COUNT (AUTO) 39 K/uL (150-450)
[2024-01-27 08:00] VITALS: BP 159/78; TEMP 98.1; O2SAT 94
[2024-01-27 08:10] LABS: THYROID STIMULATING HORMONE 1.417 uIU/mL (0.358-3.74)
[2024-01-27] MEDS: LACTULOSE 10 G/15 ML UDC (PYXIS) PO SCH (08:44)
[2024-01-27] MEDS: RIFAXIMIN 550 MG TABLET PO SCH (08:45)
[2024-01-27] MEDS: MEMANTINE HCL 5 MG TABLET PO SCH (08:45)
[2024-01-27] MEDS: CARVEDILOL 3.125 MG TABLET PO SCH (08:45)
[2024-01-27] MEDS: DOCUSATE SODIUM 100 MG CAPSULE PO SCH (08:45)
[2024-01-27] MEDS: GABAPENTIN 300 MG CAPSULE PO SCH (08:45)
[2024-01-27] MEDS: MULTIVIT W/MINERALS 1 TAB TABLET PO SCH (08:45)
[2024-01-27 10:17] LABS: CALCIUM, SERUM 7.6 mg/dL (8.5-10.1); CREATININE 0.6 mg/dL (0.6-1.3); MAGNESIUM 1.9 mg/dL (1.8-2.4); PHOSPHORUS 3.9 mg/dL (2.5-4.9); POTASSIUM 3.1 mmol/L (3.5-5.1)
[2024-01-27 11:48] LABS: ANISOCYTOSIS 1+; BASOPHILS % (MANUAL) 0 % (0.0-2.0); EOSINOPHILS % (MANUAL) 5 % (0-4); LYMPHOCYTES % (MANUAL) 19 % (16-48); MONOCYTES % (MANUAL) 8 % (0-11.0); NEUTROPHILS % (MANUAL) 68 (42-76); PLATELET ESTIMATE DECREASED
[2024-01-27 12:00] VITALS: BP 136/73; TEMP 98.6; O2SAT 95
[2024-01-27] MEDS: POTASSIUM CHLORIDE 20 MEQ TAB.PRT.SR PO ONE (12:20)
[2024-01-27 16:00] VITALS: BP 146/69; TEMP 98.8; O2SAT 98
[2024-01-27 20:00] VITALS: BP 155/84; TEMP 98.5; O2SAT 96
[2024-01-28] VITALS: BP 143/82; TEMP 98.3; O2SAT 95
[2024-01-28 04:00] VITALS: BP 158/89; TEMP 98.2; O2SAT 95
[2024-01-28 08:00] VITALS: BP 145/78; TEMP 98.4; O2SAT 95
[2024-01-28 12:00] VITALS: BP 142/75; TEMP 98; O2SAT 95
== END 2024-01-28 13:07 | DRG 442 ==
LOC: ER 12:22 → MEDSG1 18:01 → TELE1 22:17 → MEDSG1 01-28 08:52
PROVIDERS: ADMIT Internal Medicine; ATTEND Internal Medicine
DX: K76.82 Hepatic encephalopathy (principal); E44.0 Moderate protein-calorie malnutrition; F03.918 Unspecified dementia, unspecified severity, with other behavioral disturbance; N39.0 Urinary tract infection, site not specified; K70.30 Alcoholic cirrhosis of liver without ascites; K21.9 Gastro-esophageal reflux disease without esophagitis; I10 Essential (primary) hypertension; I25.2 Old myocardial infarction; Y90.9 Presence of alcohol in blood, level not specified; F10.10 Alcohol abuse, uncomplicated; F31.9 Bipolar disorder, unspecified; G47.00 Insomnia, unspecified; F41.9 Anxiety disorder, unspecified; F29 Unspecified psychosis not due to a substance or known physiological condition; Z79.899 Other long term (current) drug therapy; D69.6 Thrombocytopenia, unspecified; D72.819 Decreased white blood cell count, unspecified; E80.6 Other disorders of bilirubin metabolism; R16.1 Splenomegaly, not elsewhere classified; K80.20 Calculus of gallbladder without cholecystitis without obstruction; E88.09 Other disorders of plasma-protein metabolism, not elsewhere classified
CPT/HCPCS: 36415; 70450-TC; 71045-TC; 80048-TC; 80076-TC; 81001; 82140-TC; 83605-TC; 83735-TC; 84100-TC; 84443-TC; 84484-TC; 85025-TC; 85730-TC; 87040-TC; 87081-TC; 87086-TC; G0378

== ENCOUNTER 2024-05-27 18:01 | Inpatient (IN) | payer MEDICARE, OTHER ==
[~2024-05-27] VITALS: Ht 167.6 cm; Wt 90.7 kg
[~2024-05-27 18:01] MED LIST changes: +AMIN30LI66 PO; +BISA10SU11 RC; +CLOB15CR5 TP; +CRAN425C6 PO; -LACT10SO58 PO; +LACT20SO4 PO; -LORA-259 PO; +MAGN400T26 PO; -MORP2VIA IM; +MULT-213 PO; -MULT-24 PO; +PRED20TA PO; -RISP1TAB7 PO; +ZINC220C6 PO; -Zinc Sulfate PO
[2024-05-27 18:25] LABS: BASOPHILS % (AUTO) 0.4 % (0.0-2.0); EOSINOPHILS # (AUTO) 0.1 K/uL (0.0-0.7); EOSINOPHILS % (AUTO) 1.9 % (0.0-6.0); HEMATOCRIT 41 % (39-51); HEMOGLOBIN 14.1 g/dL (13.5-17.5); LYMPHOCYTES # (AUTO) 0.8 K/uL (0.8-4.8); LYMPHOCYTES % (AUTO) 13.1 % (20.0-44.0); MEAN CORPUSCULAR HEMOGLOBIN 31 PG (26.0-33.0); MEAN CORPUSCULAR HGB CONC 35 g/dl (31.0-36.0); MEAN CORPUSCULAR VOLUME 91 fL (80-96); MONOCYTES # (AUTO) 0.5 K/uL (0.1-1.30); MONOCYTES % (AUTO) 8.6 % (2.0-12.0); NEUTROPHILS # (AUTO) 4.4 K/uL (1.8-8.9); PLATELET COUNT (AUTO) 52 K/uL (150-450); RED BLOOD CELL COUNT(AUTO) 4.49 MIL/uL (4.5-6.0); RED CELL DISTRIBUTION WIDTH 15.4 % (11.5-15.0); WHITE BLOOD COUNT (AUTO) 5.8 K/uL (4.3-11.0)
[2024-05-27 18:31] LABS: CARBON DIOXIDE 25 mmol/L (21-32); CHLORIDE 108 mmol/L (98-107); CREATININE 0.7 mg/dL (0.6-1.3); GLUCOSE 181 mg/dL (74-106); POTASSIUM 3.3 mmol/L (3.5-5.1); SODIUM SERUM 140 mmol/L (136-145); UREA NITROGEN, BLOOD 7 mg/dL (7-18)
[2024-05-27 18:38] LABS: ALANINE AMINOTRANSFERASE 39 U/L (12-78); ALBUMIN 2.6 g/dL (3.4-5.0); ALKALINE PHOSPHATASE 115 U/L (46-116); ASPARTATE AMINOTRANSFERASE 32 U/L (15-37); BILIRUBIN,DIRECT 0.4 mg/dL (0.0-0.2); BILIRUBIN,TOTAL 1.2 mg/dL (0.2-1.0); TOTAL PROTEIN, SERUM 6.6 g/dL (6.4-8.2)
[2024-05-27 18:39] LABS: ACETAMINOPHEN 0 ug/ml (10-30); SALICYLATE < 0.2 mg/dL (2.8-20.0)
[2024-05-27 18:40] LABS: ALCOHOL, BLOOD < 3 mg/dL (0-10)
[2024-05-27 19:09] LABS: ANISOCYTOSIS 1+; EOSINOPHILS % (MANUAL) 1 % (0-4); LYMPHOCYTES % (MANUAL) 15 % (16-48); MONOCYTES % (MANUAL) 6 % (0-11.0); NEUTROPHILS % (MANUAL) 77 (42-76); PLATELET ESTIMATE DECREASED; REACTIVE LYMPHOCYTES 1 % (0-0)
[2024-05-27 20:26] LABS: APPEARANCE,URINE CLEAR (CLEAR); BILIRUBIN,URINE NEGATIVE (NEGATIVE); BLOOD, URINE NEGATIVE Ery/uL (NEGATIVE); COLOR,URINE YELLOW (YELLOW); KETONES,URINE NEGATIVE (NEGATIVE); LEUKOCYTE ESTERASE ,URINE NEGATIVE (NEGATIVE); NITRITE, URINE NEGATIVE (NEGATIVE); PH,URINE 7.5 (5.0-8.0); PROTEIN,URINE NEGATIVE (NEGATIVE); UGLUCOSE NEGATIVE (NEGATIVE)
[2024-05-27 20:35] LABS: AMPHETAMINE, URINE NEGATIVE (NEGATIVE); BARBITURATE, URINE NEGATIVE (NEGATIVE); BENZODIAZEPINE, URINE NEGATIVE (NEGATIVE); CANNABINOID, URINE NEGATIVE (NEGATIVE); COCCAINE, URINE NEGATIVE (NEGATIVE); OPIATE, URINE NEGATIVE (NEGATIVE); PHENCYCLIDINE SCREEN,URINE NEGATIVE (NEGATIVE)
[2024-05-27 21:23] LABS: ADD URINE CULTURE NO; BACTERIA,URINE None seen /HPF (None Seen); MUCUS,URINE Few /LPF (None Seen); RBC,URINE 0-2 /HPF (0-2); WBC,URINE 0-2 /HPF (0-3)
[2024-05-27] MEDS ORDERED: CYAN500T64 PO (23:44)
[2024-05-27] MEDS ORDERED: VIT1CAPS44 PO (23:44)
[2024-05-28] MEDS ORDERED: BISACODYL SUPP (10 MG) 10 MG/SUPP.RECT SUPP.RECT RC PRN
[2024-05-28 00:20] VITALS: BP 148/69; TEMP 97.9; O2SAT 96
[2024-05-28] MEDS ORDERED: LORAZEPAM 0.5 MG TABLET PO PRN (00:30)
[2024-05-28] MEDS: BLOOD SUGAR DIAGNOSTIC 1 EACH STRIP IN ONE (00:30)
[2024-05-28] MEDS ORDERED: MAG HYDROX/AL HYDROX/SIMETH 30 ML UDC PO PRN ×2 (00:30)
[2024-05-28] MEDS ORDERED: TEMAZEPAM 7.5 MG CAPSULE PO PRN (00:30)
[2024-05-28] MEDS ORDERED: ACETAMINOPHEN 325 MG TABLET PO PRN (00:30)
[2024-05-28] MEDS ORDERED: MAGNESIUM HYDROXIDE 30 ML UDC PO PRN ×2 (00:30)
[2024-05-28] MEDS: POTASSIUM CHLORIDE 20 MEQ TAB.PRT.SR PO ONE (02:05)
[2024-05-28] MEDS: LACTULOSE 10 G/15 ML UDC (PYXIS) PO SCH (05:44)
[2024-05-28 07:19] LABS: ALBUMIN 2.5 g/dL (3.4-5.0); BILIRUBIN,TOTAL 1.6 mg/dL (0.2-1.0); CALCIUM, SERUM 8.4 mg/dL (8.5-10.1); CREATININE 0.5 mg/dL (0.6-1.3); POTASSIUM 3.6 mmol/L (3.5-5.1); TOTAL PROTEIN, SERUM 6.3 g/dL (6.4-8.2)
[2024-05-28 08:00] VITALS: BP 140/84; TEMP 97.8; O2SAT 94
[2024-05-28] MEDS: MULTIVIT W/MINERALS 1 TAB TABLET PO SCH (08:59)
[2024-05-28] MEDS: DOCUSATE SODIUM 100 MG CAPSULE PO SCH (08:59)
[2024-05-28] MEDS: predniSONE 20 MG TABLET PO SCH (08:59)
[2024-05-28] MEDS: RIFAXIMIN 550 MG TABLET PO SCH (08:59)
[2024-05-28] MEDS: CYANOCOBALAMIN 500 MCG TABLET PO SCH (08:59)
[2024-05-28] MEDS ORDERED: Medication Not On Formulary EA (Vit C/E/Zn/Coppr/Lutein/Zeaxan (Preservision Areds 2 Sof PO SCH (09:00)
[2024-05-28] MEDS ORDERED: Medication Not On Formulary EA (Cranberry Extract (Cranberry) 425 MG) PO SCH (09:00)
[2024-05-28] MEDS: MAGNESIUM OXIDE 400 MG TABLET PO SCH (09:00)
[2024-05-28] MEDS: CARVEDILOL 3.125 MG TABLET PO SCH (09:00)
[2024-05-28] MEDS: GABAPENTIN 300 MG CAPSULE PO SCH (09:02)
[2024-05-28] MEDS: PERMETHRIN 5% CRM 60 GM TUBE TP ONE (11:14)
[2024-05-28 16:00] VITALS: BP 112/59; TEMP 97.8; O2SAT 96
[2024-05-28] MEDS: risperiDONE 1 MG TABLET PO SCH (16:13)
[2024-05-28] MEDS: MEMANTINE HCL 5 MG TABLET PO SCH (16:14)
[2024-05-28] MEDS: PROSOURCE / PROSTAT (PYXIS) 30 ML UDC PO SCH (18:14)
[2024-05-28 20:10] VITALS: BP 111/52; TEMP 97.8; O2SAT 96
[2024-05-28] MEDS: LACTULOSE 10 G/15 ML UDC (PYXIS) ONE (23:52)
[2024-05-29] MEDS: LACTULOSE 10 G/15 ML UDC (PYXIS) ONE (05:20)
[2024-05-29 07:45] LABS: CHOLESTEROL 172 mg/dL (<200); HDL CHOLESTEROL 49 mg/dL (40-60); LDL 127 mg/dL (0-99); TRIGLYCERIDES 62 mg/dL (30-150)
[2024-05-29 08:00] VITALS: BP 144/86; TEMP 98.7; O2SAT 97
[2024-05-29 16:00] VITALS: BP 128/74; TEMP 97.7; O2SAT 96
[2024-05-29 20:22] VITALS: BP 159/77; TEMP 98.1; O2SAT 96
[2024-05-29] MEDS: MUPIROCIN OINT 2% 22 GM TUBE NS SCH (21:57)
[2024-05-30] MEDS: LACTULOSE 10 G/15 ML UDC (PYXIS) ONE (06:35)
[2024-05-30 08:00] VITALS: BP 135/85; TEMP 98.2; O2SAT 98
[2024-05-30 16:00] VITALS: BP 140/75; TEMP 98.8; O2SAT 97
[2024-05-30 20:00] VITALS: BP 119/60; TEMP 98.4; O2SAT 98
[2024-05-31] MEDS: LACTULOSE 10 G/15 ML UDC (PYXIS) ONE (05:22)
[2024-05-31 08:00] VITALS: BP 111/67; TEMP 97.9; O2SAT 97
[2024-05-31 16:00] VITALS: BP 134/72; TEMP 98.2; O2SAT 98
[2024-05-31 20:00] VITALS: BP 135/71; TEMP 97.9; O2SAT 95
[2024-06-01 08:00] VITALS: BP 142/79; TEMP 98.8; O2SAT 98
[2024-06-01 16:00] VITALS: BP 126/71; TEMP 98.2; O2SAT 98
[2024-06-01 20:00] VITALS: BP 127/60; TEMP 98.4; O2SAT 98
[2024-06-02 08:00] VITALS: BP 110/68; TEMP 97.6; O2SAT 98
[2024-06-02 16:00] VITALS: BP 126/61; TEMP 97.9; O2SAT 98
[2024-06-02 20:48] VITALS: BP 140/71; TEMP 97.9; O2SAT 96
[2024-06-03 08:00] VITALS: BP 135/82; TEMP 97.9; O2SAT 95
[2024-06-03] MEDS: ERGOCALCIFEROL (VITAMIN D 2) 50,000 UNIT CAPSULE PO SCH (08:35)
[2024-06-03 16:00] VITALS: BP 116/92; TEMP 98.8; O2SAT 98
[2024-06-03 20:33] VITALS: BP 117/63; TEMP 98; O2SAT 98
[2024-06-04 08:00] VITALS: BP 133/87; TEMP 97.6; O2SAT 97
[2024-06-04 16:00] VITALS: BP_SYST 129; BP_SYST 162; BP_DIAS 85; BP_DIAS 91; TEMP 99; O2SAT 95; O2SAT 98
[2024-06-04] MEDS: PERMETHRIN 5% CRM 60 GM TUBE TP ONE (16:40)
[2024-06-04 20:33] VITALS: BP 153/79; TEMP 97.9; O2SAT 97
[2024-06-05] MEDS ORDERED: LACTULOSE 10 G/15 ML UDC (PYXIS) ONE (06:20)
[2024-06-05 07:36] LABS: ALBUMIN 2.5 g/dL (3.4-5.0); BILIRUBIN,TOTAL 1.7 mg/dL (0.2-1.0); CREATININE 0.6 mg/dL (0.6-1.3); POTASSIUM 3.9 mmol/L (3.5-5.1); TOTAL PROTEIN, SERUM 6.6 g/dL (6.4-8.2)
[2024-06-05 07:51] LABS: BASOPHILS % (AUTO) 0.3 % (0.0-2.0); EOSINOPHILS # (AUTO) 0.2 K/uL (0.0-0.7); EOSINOPHILS % (AUTO) 2.7 % (0.0-6.0); HEMATOCRIT 46 % (39-51); HEMOGLOBIN 15.4 g/dL (13.5-17.5); LYMPHOCYTES # (AUTO) 0.7 K/uL (0.8-4.8); LYMPHOCYTES % (AUTO) 11.5 % (20.0-44.0); MEAN CORPUSCULAR HEMOGLOBIN 31 PG (26.0-33.0); MEAN CORPUSCULAR HGB CONC 33 g/dl (31.0-36.0); MEAN CORPUSCULAR VOLUME 92 fL (80-96); MONOCYTES # (AUTO) 0.6 K/uL (0.1-1.30); MONOCYTES % (AUTO) 8.8 % (2.0-12.0); NEUTROPHILS # (AUTO) 4.9 K/uL (1.8-8.9); NEUTROPHILS % (AUTO) 76.7 % (43.0-81.0); RED BLOOD CELL COUNT(AUTO) 5.07 MIL/uL (4.5-6.0); RED CELL DISTRIBUTION WIDTH 15.8 % (11.5-15.0); WHITE BLOOD COUNT (AUTO) 6.3 K/uL (4.3-11.0)
[2024-06-05 07:59] LABS: PLATELET COUNT (AUTO) 47 K/uL (150-450)
[2024-06-05 08:00] VITALS: BP 139/75; TEMP 97.9; O2SAT 98
[2024-06-05 10:18] LABS: EOSINOPHILS % (MANUAL) 1 % (0-4); LYMPHOCYTES % (MANUAL) 11 % (16-48); MONOCYTES % (MANUAL) 7 % (0-11.0); NEUTROPHILS % (MANUAL) 81 (42-76)
[2024-06-05 10:29] LABS: ANISOCYTOSIS 1+; OVALOCYTES 1+; PLATELET ESTIMATE DECREASED
[2024-06-05] MEDS: LACTULOSE 10 G/15 ML UDC (PYXIS) PO SCH (12:57)
[2024-06-05 16:00] VITALS: BP 153/94; TEMP 98.6; O2SAT 95
[2024-06-06 08:00] VITALS: BP 153/77; TEMP 97.8; O2SAT 94
[2024-06-06] MEDS: FOLIC ACID 1 MG TABLET PO SCH (08:04)
[2024-06-06 16:19] VITALS: BP 137/77; TEMP 98.2; O2SAT 97
[2024-06-06 20:00] VITALS: BP 139/74; TEMP 98; O2SAT 99
[2024-06-07 08:00] VITALS: BP 130/82; TEMP 97.8; O2SAT 96
[2024-06-07] MEDS: LACTULOSE 10 G/15 ML UDC (PYXIS) ONE (13:04)
[2024-06-07 16:00] VITALS: BP 130/84; TEMP 98.1; O2SAT 98
[2024-06-07 20:00] VITALS: BP 121/59; TEMP 97.8; O2SAT 98
[2024-06-08 07:13] LABS: BASOPHILS # (AUTO) 0.1 K/uL (0.0-0.2); BASOPHILS % (AUTO) 0.8 % (0.0-2.0); EOSINOPHILS # (AUTO) 0.2 K/uL (0.0-0.7); EOSINOPHILS % (AUTO) 3.1 % (0.0-6.0); HEMATOCRIT 43 % (39-51); HEMOGLOBIN 14.6 g/dL (13.5-17.5); LYMPHOCYTES # (AUTO) 0.7 K/uL (0.8-4.8); LYMPHOCYTES % (AUTO) 11.7 % (20.0-44.0); MEAN CORPUSCULAR HEMOGLOBIN 31 PG (26.0-33.0); MEAN CORPUSCULAR HGB CONC 34 g/dl (31.0-36.0); MEAN CORPUSCULAR VOLUME 92 fL (80-96); MONOCYTES # (AUTO) 0.5 K/uL (0.1-1.30); MONOCYTES % (AUTO) 8.4 % (2.0-12.0); NEUTROPHILS # (AUTO) 4.7 K/uL (1.8-8.9); RED BLOOD CELL COUNT(AUTO) 4.69 MIL/uL (4.5-6.0); WHITE BLOOD COUNT (AUTO) 6.3 K/uL (4.3-11.0)
[2024-06-08 07:22] LABS: PLATELET COUNT (AUTO) 40 K/uL (150-450)
[2024-06-08 07:28] LABS: ALBUMIN 2.3 g/dL (3.4-5.0); BILIRUBIN,DIRECT 0.4 mg/dL (0.0-0.2); BILIRUBIN,TOTAL 1.4 mg/dL (0.2-1.0); TOTAL PROTEIN, SERUM 6.2 g/dL (6.4-8.2)
[2024-06-08 07:39] LABS: CALCIUM, SERUM 7.7 mg/dL (8.5-10.1); CREATININE 0.5 mg/dL (0.6-1.3); MAGNESIUM 2.1 mg/dL (1.8-2.4); PHOSPHORUS 2.8 mg/dL (2.5-4.9); POTASSIUM 3.6 mmol/L (3.5-5.1)
[2024-06-08 08:00] VITALS: BP 108/66; TEMP 97.7; O2SAT 94
[2024-06-08 08:49] VITALS: BP 108/66
[2024-06-08 10:18] LABS: ANISOCYTOSIS 1+; BASOPHILS % (MANUAL) 0 % (0.0-2.0); EOSINOPHILS % (MANUAL) 2 % (0-4); LYMPHOCYTES % (MANUAL) 10 % (16-48); MONOCYTES % (MANUAL) 9 % (0-11.0); NEUTROPHILS % (MANUAL) 79 (42-76); PLATELET ESTIMATE DECREASED
[2024-06-08] MEDS ORDERED: FOLI0.4T6 PO (13:52)
[2024-06-08] MEDS ORDERED: AMIN30LI2 PO (13:52)
== END 2024-06-08 12:50 | DRG 885 ==
LOC: ER 18:08 → GPS 23:31
PROVIDERS: ADMIT Nurse Practitioner Psychiatric/Mental Health; ATTEND Student in an Organized Health Care Education/Training Program
DX: F29 Unspecified psychosis not due to a substance or known physiological condition (principal); F03.92 Unspecified dementia, unspecified severity, with psychotic disturbance; F03.94 Unspecified dementia, unspecified severity, with anxiety; F03.918 Unspecified dementia, unspecified severity, with other behavioral disturbance; E44.0 Moderate protein-calorie malnutrition; I10 Essential (primary) hypertension; I25.2 Old myocardial infarction; F10.21 Alcohol dependence, in remission; F20.9 Schizophrenia, unspecified; G62.9 Polyneuropathy, unspecified; K74.60 Unspecified cirrhosis of liver; Z79.899 Other long term (current) drug therapy; E87.6 Hypokalemia; E80.6 Other disorders of bilirubin metabolism; B86 Scabies; D69.6 Thrombocytopenia, unspecified; K21.9 Gastro-esophageal reflux disease without esophagitis; K80.20 Calculus of gallbladder without cholecystitis without obstruction; Y04.0XXA Assault by unarmed brawl or fight, initial encounter; Y92.129 Unspecified place in nursing home as the place of occurrence of the external cause
CPT/HCPCS: 36415; 70450-TC; 76700-TC; 80048-TC; 80053-TC; 80061-TC; 80076-TC; 81001; 82140-TC; 82962-TC; 83735-TC; 84100-TC; 85025-TC; 87081-TC; G0480

== ENCOUNTER 2024-06-08 12:54 | Inpatient (IN) | payer MEDICARE, OTHER ==
[~2024-06-08] VITALS: Ht 165.1 cm; Wt 74.8 kg
[~2024-06-08 12:54] MED LIST changes: +CYAN500T64 PO; +VIT1CAPS44 PO; -ZINC220C6 PO
[2024-06-08] MEDS ORDERED: FOLI0.4T6 PO (13:52)
[2024-06-08] MEDS ORDERED: AMIN30LI2 PO (13:52)
[2024-06-08] MEDS ORDERED: ONDANSETRON HCL/PF 4 MG/2 ML VIAL IVP PRN (14:30)
[2024-06-08] MEDS ORDERED: hydrALAZINE HCL IV 20 MG VIAL IV PRN (14:30)
[2024-06-08] MEDS ORDERED: ACETAMINOPHEN 325 MG TABLET PO PRN (14:30)
[2024-06-08] MEDS ORDERED: MORPHINE SULFATE INJ 2 MG/ML DISP.SYRIN IV PRN (14:30)
[2024-06-08 15:17] LABS: BASOPHILS % (AUTO) 0.4 % (0.0-2.0); EOSINOPHILS # (AUTO) 0.2 K/uL (0.0-0.7); EOSINOPHILS % (AUTO) 3.3 % (0.0-6.0); HEMATOCRIT 43 % (39-51); HEMOGLOBIN 14.7 g/dL (13.5-17.5); LYMPHOCYTES # (AUTO) 0.6 K/uL (0.8-4.8); LYMPHOCYTES % (AUTO) 9.7 % (20.0-44.0); MEAN CORPUSCULAR HEMOGLOBIN 32 PG (26.0-33.0); MEAN CORPUSCULAR HGB CONC 34 g/dl (31.0-36.0); MEAN CORPUSCULAR VOLUME 93 fL (80-96); MONOCYTES # (AUTO) 0.5 K/uL (0.1-1.30); MONOCYTES % (AUTO) 8.3 % (2.0-12.0); NEUTROPHILS % (AUTO) 78.3 % (43.0-81.0); RED BLOOD CELL COUNT(AUTO) 4.62 MIL/uL (4.5-6.0); RED CELL DISTRIBUTION WIDTH 15.8 % (11.5-15.0); WHITE BLOOD COUNT (AUTO) 6.4 K/uL (4.3-11.0)
[2024-06-08 15:29] LABS: PLATELET COUNT (AUTO) 36 K/uL (150-450)
[2024-06-08 15:37] LABS: CALCIUM, SERUM 8.1 mg/dL (8.5-10.1); CREATININE 0.6 mg/dL (0.6-1.3); POTASSIUM 3.8 mmol/L (3.5-5.1)
[2024-06-08 15:47] LABS: ALBUMIN 2.3 g/dL (3.4-5.0); BILIRUBIN,TOTAL 1.7 mg/dL (0.2-1.0); TOTAL PROTEIN, SERUM 6.3 g/dL (6.4-8.2)
[2024-06-08 16:00] VITALS: BP 124/60; TEMP 98.4; O2SAT 94
[2024-06-08 16:29] LABS: ANISOCYTOSIS 1+; EOSINOPHILS % (MANUAL) 3 % (0-4); LYMPHOCYTES % (MANUAL) 5 % (16-48); MONOCYTES % (MANUAL) 5 % (0-11.0); NEUTROPHILS % (MANUAL) 87 (42-76); PLATELET ESTIMATE DECREASED
[2024-06-08 16:30] LABS: OVALOCYTES RARE; ROULEAUX RARE
[2024-06-08] MEDS: RIFAXIMIN 550 MG TABLET PO SCH (16:31)
[2024-06-08] MEDS: MEMANTINE HCL 5 MG TABLET PO SCH (16:31)
[2024-06-08] MEDS: CARVEDILOL 3.125 MG TABLET PO SCH (16:32)
[2024-06-08] MEDS: predniSONE 20 MG TABLET PO SCH (16:32)
[2024-06-08] MEDS: GABAPENTIN 300 MG CAPSULE PO SCH (16:34)
[2024-06-08] MEDS: Calcium Gluconate 1GM/10ML 9.3 MEQ in IV NS 0.9% 100 ML IV ONE (17:57)
[2024-06-08] MEDS: LACTULOSE 10 G/15 ML UDC (PYXIS) PO SCH (18:03)
[2024-06-08 20:00] VITALS: BP 151/84; TEMP 98.4; O2SAT 94
[2024-06-09 07:33] LABS: ALBUMIN 2.2 g/dL (3.4-5.0); BILIRUBIN,TOTAL 1.5 mg/dL (0.2-1.0); CREATININE 0.5 mg/dL (0.6-1.3); POTASSIUM 3.8 mmol/L (3.5-5.1)
[2024-06-09 07:35] LABS: BASOPHILS % (AUTO) 0.3 % (0.0-2.0); EOSINOPHILS # (AUTO) 0.1 K/uL (0.0-0.7); EOSINOPHILS % (AUTO) 1.9 % (0.0-6.0); HEMATOCRIT 43 % (39-51); HEMOGLOBIN 14.2 g/dL (13.5-17.5); LYMPHOCYTES # (AUTO) 0.6 K/uL (0.8-4.8); LYMPHOCYTES % (AUTO) 10.2 % (20.0-44.0); MEAN CORPUSCULAR HEMOGLOBIN 31 PG (26.0-33.0); MEAN CORPUSCULAR HGB CONC 33 g/dl (31.0-36.0); MEAN CORPUSCULAR VOLUME 92 fL (80-96); MONOCYTES # (AUTO) 0.4 K/uL (0.1-1.30); MONOCYTES % (AUTO) 7.1 % (2.0-12.0); NEUTROPHILS # (AUTO) 4.7 K/uL (1.8-8.9); NEUTROPHILS % (AUTO) 80.5 % (43.0-81.0); RED BLOOD CELL COUNT(AUTO) 4.62 MIL/uL (4.5-6.0); RED CELL DISTRIBUTION WIDTH 15.8 % (11.5-15.0); WHITE BLOOD COUNT (AUTO) 5.9 K/uL (4.3-11.0)
[2024-06-09 08:00] VITALS: BP 138/81; TEMP 98.2; O2SAT 98
[2024-06-09] MEDS: CYANOCOBALAMIN 500 MCG TABLET PO SCH (09:08)
[2024-06-09] MEDS: FOLIC ACID 1 MG TABLET PO SCH (09:08)
[2024-06-09 09:09] LABS: PLATELET COUNT (AUTO) 37 K/uL (150-450)
[2024-06-09 09:20] LABS: MAGNESIUM 2.2 mg/dL (1.8-2.4); PHOSPHORUS 3.3 mg/dL (2.5-4.9)
[2024-06-09 11:05] LABS: EOSINOPHILS % (MANUAL) 1 % (0-4); LYMPHOCYTES % (MANUAL) 7 % (16-48); MONOCYTES % (MANUAL) 7 % (0-11.0); MYELOCYTES % 1 % (0-0); NEUTROPHILS % (MANUAL) 84 (42-76); PLATELET ESTIMATE DECREASED
[2024-06-09] MEDS: LACTULOSE 20 G/30 ML UDC PO SCH (13:28)
[2024-06-09 16:00] VITALS: BP 144/84; TEMP 99.3; O2SAT 96
[2024-06-09 20:00] VITALS: BP 143/72; TEMP 98.5; O2SAT 95
[2024-06-09 20:45] VITALS: BP 143/72; TEMP 98.5; O2SAT 95
[2024-06-10 08:24] VITALS: BP 124/76; TEMP 97.9; O2SAT 97
[2024-06-10 14:31] LABS: BASOPHILS % (AUTO) 0.1 % (0.0-2.0); EOSINOPHILS # (AUTO) 0.2 K/uL (0.0-0.7); EOSINOPHILS % (AUTO) 2.3 % (0.0-6.0); HEMATOCRIT 44 % (39-51); LYMPHOCYTES # (AUTO) 0.6 K/uL (0.8-4.8); LYMPHOCYTES % (AUTO) 8.6 % (20.0-44.0); MEAN CORPUSCULAR HEMOGLOBIN 31 PG (26.0-33.0); MEAN CORPUSCULAR HGB CONC 34 g/dl (31.0-36.0); MEAN CORPUSCULAR VOLUME 92 fL (80-96); MONOCYTES # (AUTO) 0.4 K/uL (0.1-1.30); MONOCYTES % (AUTO) 5.6 % (2.0-12.0); NEUTROPHILS # (AUTO) 5.5 K/uL (1.8-8.9); NEUTROPHILS % (AUTO) 83.4 % (43.0-81.0); RED BLOOD CELL COUNT(AUTO) 4.83 MIL/uL (4.5-6.0); RED CELL DISTRIBUTION WIDTH 16.2 % (11.5-15.0); WHITE BLOOD COUNT (AUTO) 6.6 K/uL (4.3-11.0)
[2024-06-10 14:50] LABS: ALBUMIN 2.3 g/dL (3.4-5.0); BILIRUBIN,TOTAL 1.9 mg/dL (0.2-1.0); CREATININE 0.7 mg/dL (0.6-1.3); PLATELET COUNT (AUTO) 33 K/uL (150-450); POTASSIUM 4.1 mmol/L (3.5-5.1); TOTAL PROTEIN, SERUM 6.3 g/dL (6.4-8.2)
[2024-06-10] MEDS: risperiDONE 0.25 MG TABLET PO SCH (16:26)
[2024-06-10 16:44] VITALS: BP 146/86; TEMP 98; O2SAT 96
[2024-06-10 17:08] LABS: EOSINOPHILS % (MANUAL) 3 % (0-4); LYMPHOCYTES % (MANUAL) 10 % (16-48); MONOCYTES % (MANUAL) 3 % (0-11.0); NEUTROPHILS % (MANUAL) 84 (42-76); PLATELET ESTIMATE DECRE
[2024-06-10 20:12] VITALS: BP 140/78; TEMP 98.1; O2SAT 92
[2024-06-11 08:00] VITALS: BP 163/96; TEMP 98.6; O2SAT 96
[2024-06-11] MEDS: FOLIC ACID 1 MG TABLET PO SCH (08:40)
[2024-06-11 14:56] LABS: BASOPHILS % (AUTO) 0.6 % (0.0-2.0); EOSINOPHILS # (AUTO) 0.1 K/uL (0.0-0.7); EOSINOPHILS % (AUTO) 2.5 % (0.0-6.0); HEMATOCRIT 44 % (39-51); HEMOGLOBIN 14.9 g/dL (13.5-17.5); LYMPHOCYTES # (AUTO) 0.5 K/uL (0.8-4.8); LYMPHOCYTES % (AUTO) 9.3 % (20.0-44.0); MEAN CORPUSCULAR HEMOGLOBIN 31 PG (26.0-33.0); MEAN CORPUSCULAR HGB CONC 34 g/dl (31.0-36.0); MEAN CORPUSCULAR VOLUME 93 fL (80-96); MONOCYTES # (AUTO) 0.3 K/uL (0.1-1.30); MONOCYTES % (AUTO) 5.2 % (2.0-12.0); NEUTROPHILS # (AUTO) 4.7 K/uL (1.8-8.9); NEUTROPHILS % (AUTO) 82.4 % (43.0-81.0); RED BLOOD CELL COUNT(AUTO) 4.79 MIL/uL (4.5-6.0); RED CELL DISTRIBUTION WIDTH 16.4 % (11.5-15.0); WHITE BLOOD COUNT (AUTO) 5.7 K/uL (4.3-11.0)
[2024-06-11 15:09] LABS: CREATININE 0.7 mg/dL (0.6-1.3); POTASSIUM 4.2 mmol/L (3.5-5.1)
[2024-06-11 15:15] LABS: ALBUMIN 2.3 g/dL (3.4-5.0); BILIRUBIN,TOTAL 1.7 mg/dL (0.2-1.0); TOTAL PROTEIN, SERUM 6.2 g/dL (6.4-8.2)
[2024-06-11 15:23] LABS: PLATELET COUNT (AUTO) 29 K/uL (150-450)
[2024-06-11 16:00] VITALS: BP 134/75; TEMP 97.9; O2SAT 96
[2024-06-11 16:52] LABS: EOSINOPHILS % (MANUAL) 1 % (0-4); LYMPHOCYTES % (MANUAL) 7 % (16-48); MONOCYTES % (MANUAL) 4 % (0-11.0); NEUTROPHILS % (MANUAL) 88 (42-76); PLATELET ESTIMATE DECREASED
[2024-06-11 16:54] LABS: ANISOCYTOSIS 1+
== END 2024-06-11 16:10 | DRG 433 ==
LOC: MED 12:54
PROVIDERS: ADMIT Internal Medicine; ATTEND Internal Medicine
DX: K74.60 Unspecified cirrhosis of liver (principal); E44.0 Moderate protein-calorie malnutrition; E72.20 Disorder of urea cycle metabolism, unspecified; D69.6 Thrombocytopenia, unspecified; E83.51 Hypocalcemia; E87.6 Hypokalemia; F03.90 Unspecified dementia, unspecified severity, without behavioral disturbance, psychotic disturbance, mood disturbance, and anxiety; K21.9 Gastro-esophageal reflux disease without esophagitis; I10 Essential (primary) hypertension; S81.812A Laceration without foreign body, left lower leg, initial encounter; X58.XXXA Exposure to other specified factors, initial encounter; Y92.9 Unspecified place or not applicable; Z79.899 Other long term (current) drug therapy; F20.9 Schizophrenia, unspecified; B86 Scabies; E66.3 Overweight; F10.21 Alcohol dependence, in remission; Z87.891 Personal history of nicotine dependence; Z68.27 Body mass index [BMI] 27.0-27.9, adult; F29 Unspecified psychosis not due to a substance or known physiological condition
CPT/HCPCS: 36415; 80053-TC; 82140-TC; 83735-TC; 84100-TC; 85025-TC; 85730-TC; A4223; G0378; J0610; J7030; J7050